=== PATIENT | male | born 1980 | race Caucasian/White ===

== ENCOUNTER 2021-12-24 13:47 | Emergency (ER) | payer OTHER ==
[~2021-12-24] VITALS: Ht 170 cm; Wt 70.0 kg
--- NOTE | 2021-12-24 14:19 | ED Upper Extremity ---
General Chief Complaint: Upper Extremity Stated Complaint: POSS HYDRAULIC FLUID IN L HAND Source: patient Exam Limitations: no limitations History of Present Illness Date Seen by Provider: Dec 24, 2021 Time Seen by Provider: 13:55 Initial Comments Patient to the ER by private conveyance chief complaint just prior to arrival he was working on a under pressure hydraulic fitting that burst and he saw little punctate drop of blood on his left hand. He is afraid he may have gotten injection of high-pressure hydraulic fluid in his hand. He is not having any pain now. He is not having any blood or anything expressing from any wounds in the palm of his hand. He does not have any chest pain or shortness of air but he read online that it could be dangerous so he came to the ER to be checked out. Patient states he immediately cleaned the wound with soap and water. Allergies and Home Medications Allergies Coded Allergies: No Known Drug Allergies (Unverified , 12/24/21) Patient Home Medication List Home Medication List Reviewed: Yes Cephalexin (Cephalexin) 500 Mg Tablet, 500 MG PO BID Prescribed by: LINH RODRIGUEZ on 12/24/21 4804 Review of Systems Constitutional: No chills, No diaphoresis EENTM: No ear discharge, No ear pain Respiratory: No cough, No short of breath Cardiovascular: No chest pain, No edema Gastrointestinal: No abdominal pain, No constipation, No nausea Genitourinary: No discharge, No dysuria Musculoskeletal: see HPI; No back pain, No joint pain Skin: see HPI; No pruritus, No rash Psychiatric/Neurological: Denies Headache, Denies Numbness All Other Systems Reviewed Negative Unless Noted: No Past Wielcrp-Zvszeu-Qwwtbh Hx Patient Social History Use of E-Cig and/or Vaping dev: No Substance use?: No Physical Exam Vital Signs Capillary Refill : Height, Weight, BMI Height: '" Weight: lbs. oz. kg; BMI Method: General Appearance: WD/WN, no apparent distress HEENT: PERRL/EOMI, pharynx normal Neck: full range of motion, normal inspection Cardiovascular: normal peripheral pulses, regular rate, rhythm Respiratory: no respiratory distress, no accessory muscle use Wrist: Yes normal inspection, Yes non-tender, Yes no evidence of injury, Yes normal ROM; No abrasions Hand: normal inspection, non-tender, no evidence of injury, normal ROM, Left, abrasions, bone tenderness, deformity, ecchymosis Neurologic/Tendon: normal sensation, normal motor functions, normal tendon functions Neurologic/Psychiatric: no motor/sensory deficits, alert, normal mood/affect Skin: normal color, warm/dry Progress/Results/Core Measures Results/Orders My Orders Orders - LINH RODRIGUEZ Dipht,Pertuss(Acell),Tet Adult (Boostrix (12/24/21 14:30) Medications Given in ED Current Medications Medications Dose Ordered Sig/Juliana Route Start Time Stop Time Status Last Admin Dose Admin Diphtheria/ Tetanus/Acell Pertussis 0.5 ml ONCE ONCE IM 12/24/21 14:30 12/24/21 14:31 DC 12/24/21 14:43 0.5 ML Progress Progress Note #1: Time: 14:27 Progress Note Tdap Given. will cover with 5 days of abx. Poison control recommends surgical consult. Discussed the case with Dr. Pizano who is going to come by before he starts the case. Progress Note #2: Time: 14:43 Progress Note Harinder to the room examined the patient and does not feel there is a significant amount of fluid injected at this time to require surgical intervention however return precautions were given. Departure Impression Primary Impression: High-pressure injection injury of finger of left hand Qualified Codes: S69.82XA - Other specified injuries of left wrist, hand and finger(s), initial encounter Disposition: 01 HOME, SELF-CARE Condition: Stable Departure-Patient Inst. Decision time for Depature: 14:33 Referrals: VIDAL PIZANO DO NO,LOCAL PHYSICIAN (PCP) Primary Care Physician Patient Instructions: Hand Pain Add. Discharge Instructions: If you see increasing pain, increasing swelling, increasing redness from the left hand then call the surgeon directly or return to the ER if not able to get a hold of them. Tylenol or Motrin as necessary for pain. Keflex 1 capsule twice a day for 5 days to prevent infection in the hand. All discharge instructions reviewed with patient and/or family. Voiced understanding. Scripts Cephalexin (Cephalexin) 500 Mg Tablet 500 MG PO BID for 5 Days, #10 TAB 0 Refills Prov: LINH RODRIGUEZ 12/24/21 Copy Copies To 1: VIDAL PIZANO TITUS J Dec 24, 2021 14:19
[2021-12-24] MEDS ORDERED: TETANUS,DIPTH,PERTUSS P/F (BOOSTRIX) 0.5 ML VIAL IM ONE (14:30)
[2021-12-24] MEDS ORDERED: CEPH500T PO (14:44)
--- NOTE | 2021-12-24 23:54 | Consultation - Surgery ---
History of Present Illness History of Present Illness Patient Consulted On(marielena/time) 12/24/21 14:42 Date Seen by Provider: Dec 24, 2021 Time Seen by Provider: 14:42 History of Present Illness Consult requested by Dr. Rodriguez for high pressure hydraulic fluid injury. Seen and evaluated in ED. Patient is a 41 male who was working with hydraulic fluid hose when it broke and hit left hand. He reports having blood on the left hand at thenar immanence. Not currently having any bleeding from the site. Has a cut on posterior knuckle of middle finger. Patient able to move all fingers and squeeze hand. Concerned about the hydraulic fluid injection. Denies n/v fever sweats chills shortness of breath or chest pain. Allergies and Home Medications Allergies Coded Allergies: No Known Drug Allergies (Unverified , 12/24/21) Patient Home Medication List Home Medication List Reviewed: Yes Cephalexin (Cephalexin) 500 Mg Tablet, 500 MG PO BID Prescribed by: LINH RODRIGUEZ on 12/24/21 1444 Past Tqhfwgt-Zdiiae-Rnsfmm Hx Surgeries History of Surgeries: No Respiratory History of Respiratory Disorde: No Cardiovascular History of Cardiac Disorders: No Neurological History of Neurological Disord: No Genitourinary History of Genitourinary Disor: No Gastrointestinal History of Gastrointestinal Di: No Musculoskeletal History of Musculoskeletal Dis: No Endocrine History of Endocrine Disorders: No HEENT History of HEENT Disorders: No Cancer History of Cancer: No Psychosocial History of Psychiatric Problem: No Family Medical History Significant Family History: No Pertinent Family Hx Review of Systems-General Constitutional: No chills, No diaphoresis EENTM: No blurred vision Respiratory: No cough, No dyspnea on exertion Cardiovascular: No chest pain, No palpitations Gastrointestinal: No abdominal pain, No nausea, No vomiting Genitourinary: No decreased output, No discharge Musculoskeletal: other (left hand puncture) Skin: No change in color, No change in hair/nails Psychiatric/Neurological: Denies Anxiety, Denies Depressed, Denies Emotional Problems All Other Systems Reviewed Negative Unless Noted: Yes (Negative excepted noted.) Physical Exam-General Problems Physical Exam Vital Signs Capillary Refill : General Appearance: WD/WN, no apparent distress HEENT: PERRL/EOMI, normal ENT inspection Neck: non-tender, supple Respiratory: chest non-tender, no respiratory distress, no accessory muscle use Cardiovascular: regular rate, rhythm, no JVD Gastrointestinal: non tender, soft Rectal: deferred Back: normal inspection, no CVA tenderness Extremities: other (left hand posterior middle knuckle with small abraision. Do not see any puncture or fluid collection to left hand no signs of infection, moves all fingers with flexion and extension, hand without any deficits) Neurologic/Psychiatric: hyperion analyst II-XII nml as tested, no motor/sensory deficits, alert, normal mood/affect, oriented x 3 Skin: normal color, warm/dry; No diaphoresis Lymphatic: No no adenopathy Assessment/Plan Assessment/Plan Assessment/Plan hydraulic fluid puncture wound left hand Paitent with hydraluic fluid that puncutred skin. I do not see any evidence of a big or small wound. I feel that this is a small amount of fluid that would have been infected. Continue to monitor as outpatient. If has any changes to be seen at that time. This was also recomendation for poinson control. If he has any chagnes will notify me at that time. Nothing to do surgically at this time. VIDAL PATEL DO Dec 24, 2021 23:54
== END 2021-12-24 15:00 | disposition home or self-care (01) ==
LOC: ER 13:50
DX: S69.82XA Other specified injuries of left wrist, hand and finger(s), initial encounter (principal); X58.XXXA Exposure to other specified factors, initial encounter; Y99.0 Civilian activity done for income or pay
CPT/HCPCS: 90715; 99281

== ENCOUNTER → 2022-01-30 | Outpatient (CLI) | payer BC ==
[~2022-01-30] MED LIST: CEPH500T PO
--- NOTE | 2022-01-30 13:53 | Diagnostic Imaging Report ---
PROCEDURE: CT abdomen and pelvis without contrast. TECHNIQUE: Multiple contiguous axial images were obtained through the abdomen and pelvis without the use of intravenous contrast. Auto Exposure Controls were utilized during the CT exam to meet ALARA standards for radiation dose reduction. INDICATION: Low abdominal pain COMPARISON: None There is an approximately 0.3 cm nodule along the lower aspect of the left major fissure. This may represent pleural-based scarring. Unenhanced images of the liver reveal an approximately 3.2 cm in diameter low density focus in the lateral segment of the left hepatic lobe. This is incompletely evaluated on the noncontrasted study. There is no evidence of gallbladder, pancreatic, adrenal gland or splenic lesion. Kidneys are also unremarkable without evidence of urinary tract calculus or hydronephrosis. There is mural thickening along the descending colon with numerous diverticula present. Surrounding edema and inflammation are also noted without evidence of pericolonic abscess. No pneumoperitoneum is seen. Unopacified urinary bladder is unremarkable in appearance. IMPRESSION: Focal colitis involving the lower descending colon, may be on the basis of acute diverticulitis. There is no evidence of abscess or pneumoperitoneum. 3.2 cm low-density focus in the lateral segment of the left hepatic lobe is nonspecific. This could be related to artifact versus fatty deposition. Other hepatic lesion is not fully excluded and consideration could be given to pre and postcontrast CT or MRI for assessment. 0.3 cm left pleural base nodule, likely represents fibrosis. Dictated by: Dictated on workstation # [id number]
== END ==
LOC: RAD 12:30
PROVIDERS: ATTEND Nurse Practitioner Family
DX: K52.9 Noninfective gastroenteritis and colitis, unspecified (principal); R91.1 Solitary pulmonary nodule; R79.82 Elevated C-reactive protein (CRP)
CPT/HCPCS: 74176

== ENCOUNTER 2022-03-26 05:34 | Outpatient (CLI) | payer BC ==
[~2022-03-26] VITALS: Ht 170.2 cm; Wt 71.2 kg
== END 2022-03-27 08:42 | disposition home or self-care (01) ==
LOC: PREOP 05:34
PROVIDERS: ATTEND Surgery
DX: Z01.818 Encounter for other preprocedural examination (principal)